=== PATIENT | male | born 1985 | race Asian ===

== ENCOUNTER 2019-01-05 16:25 | Inpatient (IN) | payer OTHER ==
[~2019-01-05] VITALS: Ht 175.3 cm; Wt 80.7 kg
[2019-01-05] MEDS ORDERED: SODIUM CHLORIDE 0.9% 1000ML 1,000 ML IV STA (16:41)
[2019-01-05] MEDS ORDERED: SODIUM CHLORIDE 0.9% 50ML 50 ML ONE (17:01)
[2019-01-05] MEDS ORDERED: IOPAMIDOL 370 MG/ML 200 ML INFUS..BTL INJ ONE (17:01)
--- NOTE | 2019-01-05 17:38 | Diagnostic Imaging Report ---
EXAMINATION: CT of the abdomen and pelvis with contrast. TECHNIQUE: Spiral CT images of the abdomen and pelvis were performed from the lung bases to the lesser trochanters after the intravenous administration of 100 cc of Isovue 370. Coronal and sagittal reformatted images were obtained. COMPARISON: None. CLINICAL HISTORY:Bilateral lower quadrant pain for 12 days DISCUSSION: ABDOMEN/PELVIS: LOWER THORAX:Unremarkable. HEPATOBILIARY: No focal hepatic lesions. No intra or extrahepatic biliary ductal dilation. GALLBLADDER: No radio-opaque stones or sludge. No wall thickening. SPLEEN: No splenomegaly. PANCREAS: No focal masses or ductal dilatation. ADRENALS: No adrenal nodules. KIDNEYS/URETERS: No hydronephrosis, stones, or solid mass lesions. PELVIC ORGANS/BLADDER: The bladder is normal. PERITONEUM/RETROPERITONEUM: Reactive Fluid in the pelvis. No free air. LYMPH NODES: No intra-abdominal, retroperitoneal, pelvic or inguinal lymphadenopathy. VESSELS: The celiac trunk,superior and inferior mesenteric and bilateral renal arteries are patent The portal, superior mesenteric and splenic veins are patent. GI TRACT: Enlarged appendix with 2 relatively hypoattenuating areas which may represent early abscess formation measuring up to 13 mm across. The appendix itself measures up to 2.2 cm in diameter with extensive wall thickening and inflammatory stranding.. BONES AND SOFT TISSUE: No bony destructive lesions. No soft tissue abnormalities. IMPRESSION: Acute appendicitis without drainable fluid collection or perforation. Relative hypoattenuating areas within the phlegmonous appendix may represent developing fluid collections, however these measure only 13 mm. Signed by: David Cavanaugh MD on 01/05/2019 5:35 PM
[2019-01-05] MEDS ORDERED: PROMETHAZINE 25MG/ NS 50ML (IV) IV PRN (18:00)
[2019-01-05] MEDS ORDERED: MORPHINE SULFATE INJ 4 MG/ML INJ 1ML IV PRN (18:00)
[2019-01-05] MEDS ORDERED: DIPHENHYDRAMINE HCL INJ 50 MG/ML VIAL IV PRN (18:00)
[2019-01-05] MEDS: SODIUM CHLORIDE 0.9% 1000ML 1,000 ML IV SCH ×2 (18:09→19:40)
[2019-01-05] MEDS: PIPER-TAZ 3.375 GM / NS 50ML IV SCH (18:09)
--- OUTSIDE RECORDS SUMMARY | 2019-01-05 18:09 | XMS REPORT ---
Author Author [facility] Address Unknown Phone Unavailable Care Team Providers Care Chlorinator Operator Name Role Phone Aroldo FONG Unavailable Unavailable Problems This patient has no known problems. Allergies, Adverse Reactions, Alerts This patient has no known allergies or adverse reactions. Medications This patient has no known medications. Results Test Description Test Time Test Comments Text Results Atomic Results Result Comments CT ABD/PEL WITH CONTRAST-HOPD 2019-01-05 17:32:00 [place] [address] Patient Name: SILVERIO VILLAGOMEZ MR #: [id number] : 1985 Age/Sex: 33/M Req #: [id number] Adm Physician: Ordered by: MIMI FONG MD Report #: [id number] Location: FS Room/Bed: Procedure: [id number] HOPD/CT ABD/PEL WITH CONTRAST-HOPD Exam Date: Exam Time: REPORT STATUS: Signed EXAMINATION: CT of the abdomen and pelvis with contrast. TECHNIQUE: Spiral CT images of the abdomen and pelvis were performed from the lung bases to the lesser trochanters after the intravenous administration of 100 cc of Isovue 370. Coronal and sagittal reformatted images were obtained. COMPARISON: None. CLINICAL HISTORY:Bilateral lower quadrant pain for 12 days DISCUSSION: ABDOMEN/PELVIS: LOWER THORAX:Unremarkable. HEPATOBILIARY: No focal hepatic lesions. No intra or extrahepatic biliary ductal dilation. GALLBLADDER: No radio- opaque stones or sludge. No wall thickening. SPLEEN: No splenomegaly. PANCREAS: No focal masses or ductal dilatation. ADRENALS: No adrenal nodules. KIDNEYS/URETERS: No hydronephrosis, stones, or solid mass lesions. PELVIC ORGANS/BLADDER: The bladder is normal. PERITONEUM/RETROPERITONEUM: Reactive Fluid in the pelvis. No free air. LYMPH NODES: No intra-abdominal, retroperitoneal, pelvic or inguinal lymphadenopathy. VESSELS: The celiac trunk,superior and inferior mesenteric and bilateral renal arteries are patent The portal, superior mesenteric and splenic veins are patent. GI TRACT: Enlarged appendix with 2 relatively hypoattenuating areas which may represent early abscess formation measuring up to 13 mm across. The appendix itself measures up to 2.2 cm in diameter with extensive wall thickening and inflammatory stranding.. BONES AND SOFT TISSUE: No bony destructive lesions. No soft tissue abnormalities. IMPRESSION: Acute appendicitis without drainable fluid collection or perforation. Relative hypoattenuating areas within the phlegmonous appendix may represent developing fluid collections, however these measure only 13 mm. Signed by: David Becerril MD on 01/05/2019 5:35 PM Dictated By: JUMA BECERRIL MD [id number] Transcribed By: CALEB on 01/05/19 173 COPY TO: MIMI FONG MD
[2019-01-05] MEDS ORDERED: PIPER-TAZ 3.375 GM 50 ML ONE (18:11)
[2019-01-05] MEDS ORDERED: PROMETHAZINE 25MG/SOD CHL 0.9% 50 ML IV PRN (18:15)
--- NOTE | 2019-01-05 18:25 | NUR ---
[facility] CALLED FOR TRANSPORT ETA 45 MINUTES
[2019-01-05 18:57] VITALS: BP 118/71
[2019-01-05 19:00] VITALS: BP 118/71
--- NOTE | 2019-01-05 19:00 | NUR ---
patient is a new admit that arrived via stretcher. patient is awake and talking. patient is complaining of discomfort in the abdomen but denies nausea. patient has been assisted into the bed. bed is in the lowest position and call guillaume is within reach. will continue to monitor patient's care.
--- NOTE | 2019-01-05 19:30 | NUR ---
PATIENTS STATES HE IS VERY HUNGRY. SURGEON NOTIFIED. RECEIVED ORDER FROM SURGEON TO DC NPO STATUS UNTIL MIDNIGHT. PATIENT IS NOW ON A REGULAR DIET UNTIL MIDNIGHT. WILL CONTINUE TO MONITOR PATIENT'S CARE.
[2019-01-05 23:55] VITALS: BP 111/57
[2019-01-06] VITALS (7 sets, daily range): BP systolic 103–131; BP diastolic 58–78
[2019-01-06] MEDS: PIPER-TAZ 3.375 GM / NS 50ML IV SCH ×3 (01:43→17:05)
[2019-01-06 05:28] LABS: BASOPHILS % 0.4 % (0.0-1.0); EOSINOPHILS # (AUTO) 0.3 (0.0-0.4); EOSINOPHILS % 3.2 % (0.0-6.0); HEMATOCRIT 44.2 % (38.2-49.6); HEMOGLOBIN 14.9 g/dL (14.0-18.0); LYMPHOCYTES # (AUTO) 1.6 (1.0-3.2); LYMPHOCYTES % 15.2 % (18.0-39.1); MEAN CORPUSCULAR HEMOGLOBIN 29.3 pg (28-32); MEAN CORPUSCULAR HGB CONC 33.7 g/dL (31-35); MONOCYTES # (AUTO) 0.8 (0.2-0.8); MONOCYTES % 7.5 % (4.4-11.3); NEUTROPHILS # (AUTO) 7.7 (2.1-6.9); NEUTROPHILS % 73.1 % (38.7-80.0); PLATELET COUNT 280 x10e3/uL (140-360); RED BLOOD COUNT 5.08 x10e6/uL (4.3-5.7); RED CELL DISTRIBUTION WIDTH 12.5 % (11.7-14.4)
[2019-01-06 05:41] LABS: ANION GAP 9.9 mmol/L (8-16); BLOOD UREA NITROGEN 9 mg/dL (7-26); BUN/CREATININE RATIO 8 (6-25); CALCIUM 9.3 mg/dL (8.4-10.2); CARBON DIOXIDE 27 mmol/L (22-29); CHLORIDE 106 mmol/L (98-107); CREATININE, SERUM 1.07 mg/dL (0.72-1.25); EST GLOMERULAR FILTRATION RATE > 60 ML/MIN (60-); GLUCOSE 88 mg/dL (74-118); POTASSIUM 3.9 mmol/L (3.5-5.1); SODIUM 139 mmol/L (136-145)
--- NOTE | 2019-01-06 07:03 | NUR ---
PT ALERT RESP EVEN AND UNLABORED NO C/O PAIN WHEN ASKED PT ABLE TO MAKE NEEDS KNOWN, CALL LIGHT IN REACH.
--- NOTE | 2019-01-06 07:20 | NUR ---
REPORT GIVEN TO DAY NURSE. PATIENT IS RESTING IN BED. BED IS IN LOWEST POSITION AND CALL WOLFE IS WITH REACH.
--- NOTE | 2019-01-06 07:27 | Consultation ---
DATE OF CONSULTATION: 01/06/2019 REFERRING PHYSICIAN: Dr. Lalo Law. HISTORY OF PRESENT ILLNESS: The patient is a 33-year-old male, who presents with complaints of abdominal pain, which has started 12 days ago. He denies nausea, vomiting, or fever. The pain has persisted. He came in to the emergency room, where evaluation with CT of the abdomen and pelvis revealed findings of acute appendicitis. The patient is not having any nausea or vomiting. PAST MEDICAL HISTORY: He denies any chronic medical problems. ALLERGIES: HE HAS NO KNOWN ALLERGIES. MEDICATIONS: There were no current medications. PAST SURGICAL HISTORY: No previous surgeries. FAMILY HISTORY: Noncontributory. 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 Does not smoke cigarettes or drinks alcohol. REVIEW OF SYSTEMS: As stated above, otherwise was negative. PHYSICAL EXAMINATION: GENERAL: The patient is awake, alert, in no distress. VITAL SIGNS: Normal. HEENT: Unremarkable. Sclerae nonicteric. NECK: Supple. No masses. LUNGS: Equal breath sounds and clear bilaterally. CARDIAC: Regular rate and rhythm with no murmur. ABDOMEN: The abdomen is tender in the right lower quadrant. There is no distention. There is no mass. No questionable signs of peritonitis. EXTREMITIES: Have no edema. Pulses are palpable. NEUROLOGIC: Intact. LABORATORY TESTS: The white blood cell count 10.5, hemoglobin and hematocrit are normal. Chemistries are normal. ASSESSMENT: A 33-year-old male with acute appendicitis. He will benefit from appendectomy, we will try to schedule for today. He has been started on IV antibiotics. Procedure was explained to the patient, including risks, benefits, and alternatives. He understands, he has had the opportunity to ask questions. Thank you for asking me to see Mr. Spain. MD LAKE Andrew/JACKELIN /[id number]
[2019-01-06] MEDS: FAMOTIDINE 20 MG/2 ML VIAL IV SCH ×2 (08:14→17:05)
[2019-01-06] MEDS: SODIUM CHLORIDE 0.9% 1000ML 1,000 ML IV SCH ×2 (09:51→14:00)
[2019-01-06] MEDS ORDERED: BUPIVACAINE HCL 0.5% INJ 30 ML VIAL INJ ONE (10:45)
--- NOTE | 2019-01-06 12:07 | NUR ---
pt off unit for procedure.
[2019-01-06] MEDS ORDERED: ACETAMINOPHEN 1000 MG/100 ML 100 ML IV ONE (12:52)
[2019-01-06] MEDS ORDERED: ONDANSETRON HCL INJ 2MG/ML 2ML 2 MG/ML VIAL IV PRN (14:00)
[2019-01-06] MEDS ORDERED: FENTANYL CITRATE/PF 100MCG/2 ML INJ ONE ×2 (14:14→19:44)
--- NOTE | 2019-01-06 14:35 | NUR ---
Visit made by the Spiritual Care Department Pastoral Visitor, Marilyn Lyons. Pt out of room and no family at bedside. A card was left at the bedside to indicate a missed visit from a member of the Spiritual Care team and to inform the pt and family of the availability of a Duct Layer Helper 24 hours a day/7 days a week. A senior hr business partner will follow up as able. KIERA HERNANDEZ Duct Layer Helper Spiritual Care Department O: [phone] Pager: [phone] ([phone] number calling from)
--- NOTE | 2019-01-06 14:50 | NUR ---
PT RETURNED TO ROOM, RESP EVEN AND UNLABORED AT THIS TIME NO DISTRESS NOTED, PT ALERT RESP EVEN AND UNLABORED. CALL LIGHT IN REACH WILL CONT TO MONITOR.
[2019-01-06] MEDS: ONDANSETRON HCL INJ 2MG/ML 2ML 2 MG/ML VIAL IV PRN ×2 (15:22→19:24)
[2019-01-06] MEDS: HYDROMORPHONE 2MG/ML 2 MG/ML ML IV PRN ×2 (15:22→19:24)
--- NOTE | 2019-01-06 16:04 | Operative Report ---
DATE OF PROCEDURE: 01/06/2019 SURGEON: Terrance Connolly MD PREOPERATIVE DIAGNOSIS: Acute appendicitis. POSTOPERATIVE DIAGNOSES: Acute appendicitis with periappendiceal abscess. PROCEDURES: Diagnostic laparoscopy, laparoscopic appendectomy with drainage of periappendiceal abscess. X RAY ELECTRONICS WIREMAN: None. ANESTHESIA: General. INDICATIONS AND FINDINGS: The patient is a 33-year-old male, who presents with complaints of abdominal pain for 12 days. Workup revealed acute appendicitis. At surgery, the patient had acutely inflamed retrocecal appendix with abscess surrounded and large amount of the appendix was destroyed by the abscess. Base of the appendix was identified and there was large amount of inflammatory tissue with appendix running adherent to the wall of the colon. TECHNIQUE: After adequate general endotracheal anesthesia with the patient in supine position, the abdomen was prepped and draped in a sterile fashion with ChloraPrep solution. Skin in the umbilicus was infiltrated with 0.5% Marcaine, incision was made in the umbilicus, abdominal wall was elevated and Veress needle was introduced, pneumoperitoneum was then created. A 10 mm trocar and cannula was then passed through the umbilical wound. Laparoscopic camera was introduced. Initial laparoscopy revealed inflammatory process involving the cecum and right colon. A 12 mm trocar and cannula were placed suprapubically and a 5 mm trocar and cannula were placed in the right upper quadrant. Adherent cecum was freed from the abdominal wall. As it was freed, there was purulent fluid. The cecum was mobilized. There was dense inflammatory reaction around the lateral aspect of the cecum and the right colon. Purulent fluid was drained. There was an abscess that was identified and this was drained. As the cecum was mobilized, the base of the appendix was identified, this was dissected free and the base of the appendix was divided close to the cecum with Endo-GAURI stapler. The appendix was then followed along the cecum and right colon, vessels were divided with LigaSure device and some areas were densely adherent to the colon, as it was elevated colon came with it and in order to facilitate removal of the appendix, Endo-GAURI stapler was placed across the area where the appendix was adherent to the colon and so the portion of the wall of the colon was taken with the appendix where it could not be . Remaining portion of the mesoappendix was divided with LigaSure device freeing the appendix completely. The appendix was then placed in an Endopouch and brought out through the suprapubic cannula, care was taken to not touch the abdominal wall. The area of appendectomy was inspected for hemostasis which was seen to be adequate. It was irrigated with saline. All fluid aspirated, inspected for hemostasis which was seen to be adequate. Instruments and cannulas were then removed. Pneumoperitoneum was evacuated. Wounds were then closed. Fascia in the larger trocar wound was closed with 0 Vicryl. Skin to all wounds closed with caron. Sterile dressings applied to each wound. The patient tolerated the procedure well. Estimated blood loss was 30 mL, there were no complications, all counts were correct, and the patient was taken to recovery room in satisfactory condition. MD LAKE Andrew/JACKELIN /[id number]
[2019-01-06] MEDS ORDERED: NEOSTIGMINE 5 MG/5ML SYR ONE (17:35)
[2019-01-06] MEDS ORDERED: ROCURONIUM BROMIDE 10 MG/ML 5ML VIAL ONE (17:35)
[2019-01-06] MEDS ORDERED: ONDANSETRON HCL INJ 2MG/ML 2ML 2 MG/ML VIAL ONE (17:35)
[2019-01-06] MEDS ORDERED: SEVOFLURANE INHAL SOLN 250 ML PEN BTL ONE (17:35)
[2019-01-06] MEDS ORDERED: DEXAMETHASONE SOD PHOS INJ 4 MG/ML VIAL ONE (17:35)
[2019-01-06] MEDS ORDERED: ACETAMINOPHEN 1000 MG/100 ML IV ONE (17:35)
[2019-01-06] MEDS ORDERED: LIDOCAINE HCL 2% LOCAL INJ 5 ML SDV VIAL INJ ONE (17:35)
[2019-01-06] MEDS ORDERED: PROPOFOL IV EMULSION 10 MG/ML 20 ML VIAL ONE (17:35)
[2019-01-06] MEDS ORDERED: GLYCOPYRROLATE INJ 1MG/ 5 ML SYR ONE (17:35)
--- NOTE | 2019-01-06 19:15 | NUR ---
Rounding done and report received. Patient is resting in bed. A&Ox4, respirations even & unlabored, no distress noted. IV fluids running, R AC patent and no infiltration noted. Patient is c/o abdominal pain, will medicate per order. Patient is NPO, advised patient to ambulate to help alleviate gas pains and increase bowel movements, patient voiced understanding. Call light within reach, side rails x2 raised and bed set to lowest position.
--- NOTE | 2019-01-06 19:20 | NUR ---
report given to oncoming nurse for continued care
[2019-01-06] MEDS ORDERED: MIDAZOLAM HCL 2 MG/2 ML VIAL ONE (19:44)
[2019-01-07] VITALS (7 sets, daily range): BP systolic 102–126; BP diastolic 59–75
[2019-01-07] MEDS: SODIUM CHLORIDE 0.9% 1000ML 1,000 ML IV SCH ×3 (01:19→22:30)
[2019-01-07] MEDS: PIPER-TAZ 3.375 GM / NS 50ML IV SCH ×3 (02:09→16:52)
[2019-01-07] MEDS: HYDROMORPHONE 2MG/ML 2 MG/ML ML IV PRN ×4 (03:48→16:13)
[2019-01-07 05:29] LABS: BASOPHILS % 0.1 % (0.0-1.0); EOSINOPHILS % 0.2 % (0.0-6.0); HEMATOCRIT 43.6 % (38.2-49.6); LYMPHOCYTES # (AUTO) 1.4 (1.0-3.2); LYMPHOCYTES % 8.8 % (18.0-39.1); MEAN CORPUSCULAR HEMOGLOBIN 29.2 pg (28-32); MEAN CORPUSCULAR HGB CONC 34.4 g/dL (31-35); MEAN CORPUSCULAR VOLUME 84.8 fL (81-99); MONOCYTES # (AUTO) 1.3 (0.2-0.8); MONOCYTES % 8.5 % (4.4-11.3); NEUTROPHILS # (AUTO) 12.9 (2.1-6.9); PLATELET COUNT 306 x10e3/uL (140-360); RED BLOOD COUNT 5.14 x10e6/uL (4.3-5.7); RED CELL DISTRIBUTION WIDTH 12.5 % (11.7-14.4)
[2019-01-07 05:39] LABS: ANION GAP 12.8 mmol/L (8-16); BLOOD UREA NITROGEN 8 mg/dL (7-26); BUN/CREATININE RATIO 7 (6-25); CALCIUM 9.4 mg/dL (8.4-10.2); CARBON DIOXIDE 25 mmol/L (22-29); CHLORIDE 100 mmol/L (98-107); CREATININE, SERUM 1.21 mg/dL (0.72-1.25); EST GLOMERULAR FILTRATION RATE > 60 ML/MIN (60-); GLUCOSE 102 mg/dL (74-118); POTASSIUM 3.8 mmol/L (3.5-5.1); SODIUM 134 mmol/L (136-145)
--- NOTE | 2019-01-07 06:45 | NUR ---
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 Found to have acute appendicitis; Sx consulted. PMH: former smoker PSHx: none Allergies; see emr Fh/SH; remote cigs meds; see emr ROS: no f/c/s/N/V/D/CASILLAS/vision changes/cp/sob v/s; revd PE tired appearing anicteric ns1s2 mod bs soft nd; right lower abdomen tender; no e/t a&ox3; trammell skin dry n. affect labs/meds revd A/P: 33yoM Acute appendicitis Overweight state BMI 26.3 Former smoker PLAN sx pending; treat pain symptomatically DVT prophylaxis Xavier Law MD, PhD. DOS: 01/06/19 at 7am
--- NOTE | 2019-01-07 06:46 | NUR ---
IM- progress note O/N: s/p surgery ROS: no f/c/s/N/V/D/CASILLAS/vision changes/cp/sob v/s; revd PE tired appearing anicteric ns1s2 mod bs soft nd; right lower abdomen tender; no e/t a&ox3; trammell skin dry n. affect labs/meds revd A/P: 33yoM Acute appendicitis with Periappendiceal Abscess Overweight state BMI 26.3 Former smoker PLAN sx pending; treat pain symptomatically DVT prophylaxis 01/07 s/p lap vera for acute appendicitis; foudn to have Periappendiceal Abscess also. Pain is 6/10. Ambulate; diet per sx. Xavier Law MD, PhD. DOS: 01/06/19 at 7am
--- NOTE | 2019-01-07 07:30 | NUR ---
RECEIVED PATIENT AWAKE IN BED NO SIGNS OF DISTRESS. BED LOW, WHEELS LOCKED, SIDE RAILS X2. CALL LIGHT IN REACH WILL CONTINUE TO MONITOR.
[2019-01-07] MEDS: FAMOTIDINE 20 MG/2 ML VIAL IV SCH ×2 (08:05→16:52)
[2019-01-07] MEDS: ONDANSETRON HCL INJ 2MG/ML 2ML 2 MG/ML VIAL IV PRN (08:20)
--- NOTE | 2019-01-07 10:00 | NUR ---
PATIENT A/O X3, EVEN RESPIRATIONS ON RA. BOWEL SOUNDS ACTIVE, NO BM OR GAS SINCE SURGERY. ENCOURAGED PATIENT TO AMBULATE. RIGHT AC 20 GAUGE IV WITH NS @ 100 CC/HR. TROCAR SITES CLEAN, DRY, AND INTACT ON ABDOMEN. BED LOW, WHEELS LOCKED, SIDE RAILS X2. CALL LIGHT IN REACH WILL CONTINUE TO MONITOR PATIENT.
--- NOTE | 2019-01-07 16:18 | NUR ---
PAGED DR. SIMPSON REGARDING TEMPERATURE 101.2 AND NO GAS/BM. NEW ORDERS FOR TYLENOL Q6 PRN AND STOOL SOFTENERS.
[2019-01-07] MEDS ORDERED: ACETAMINOPHEN 325 MG TAB PO PRN (16:30)
[2019-01-07] MEDS: SENNA-S TABLET PO SCH (16:52)
[2019-01-07] MEDS: DOCUSATE SODIUM 100 MG CAP PO SCH (16:52)
[2019-01-08] VITALS (8 sets, daily range): BP systolic 107–118; BP diastolic 57–97
[2019-01-08] MEDS: PIPER-TAZ 3.375 GM / NS 50ML IV SCH ×3 (01:38→16:51)
[2019-01-08 05:31] LABS: HEMATOCRIT 40.6 % (38.2-49.6); HEMOGLOBIN 13.6 g/dL (14.0-18.0); MEAN CORPUSCULAR HEMOGLOBIN 28.6 pg (28-32); MEAN CORPUSCULAR HGB CONC 33.5 g/dL (31-35); MEAN CORPUSCULAR VOLUME 85.5 fL (81-99); PLATELET COUNT 267 x10e3/uL (140-360); RED BLOOD COUNT 4.75 x10e6/uL (4.3-5.7); RED CELL DISTRIBUTION WIDTH 12.7 % (11.7-14.4)
[2019-01-08] MEDS: SODIUM CHLORIDE 0.9% 1000ML 1,000 ML IV SCH ×3 (06:00→20:52)
[2019-01-08] MEDS: HYDROMORPHONE 2MG/ML 2 MG/ML ML IV PRN ×4 (06:39→22:38)
[2019-01-08] MEDS ORDERED: LEVAQUIN500 MG PO (07:14)
[2019-01-08] MEDS ORDERED: COLACE100 MG PO (07:14)
[2019-01-08] MEDS ORDERED: SENNA S TABLET1 EACH PO (07:14)
[2019-01-08] MEDS ORDERED: TYLENOL WITH C1 EACH PO (07:14)
--- NOTE | 2019-01-08 07:45 | NUR ---
RECEIVED PATIENT AWAKE RESTING IN BED NO SIGNS OF DISTRESS. BED LOW, WHEELS LOCKED, SIDE RAILS X2. CALL LIGHT IN REACH WILL CONTINUE TO MONITOR PATIENT.
--- NOTE | 2019-01-08 08:57 | NUR ---
ELKIN SPOKE TO DR. SIMPSON REGARDING PATIENT STATUS AND PLAN OF CARE. PATIENT UNABLE TO PRODUCE GAS AND BM POST OP LAP APPY WITH DRAINAGE OF ABSCESS. PATIENT QUALIFIES FOR INPT STATUS. MD STATES PATIENT TO HAVE BM AOR PRODUCE GAS FOR DISCHARGE SO DO NOT MAKE PATIENT INPT AT THIS TIME. Addendum: 01/08/19 at 0900 by Letha Mcfarlane CM LATE ENTRY: 12/08 @0675
--- NOTE | 2019-01-08 09:00 | NUR ---
ELKIN SPOKE TO DR. SIMPSON REGARDING INPT ORDER THIS MORNING. PATIENT STILL UNABLE TO PRODUCE BM AND GAS. MD PLACED INPT ORDER DUE TO POST OP COMPLICATIONS.
--- NOTE | 2019-01-08 09:00 | NUR ---
PATIENT A/O X3, EVEN RESPIRATIONS ON RA. BOWEL SOUNDS ACTIVE, SKIN INTACT, NO EDEMA. PATIENT HAS HAD BM. TROCAR SITES CLEAN DRY AND INTACT. NS @ 100 CC/HR AND IV ABX. ENCOURAGED PATIENT TO AMBULATE AND USE I.S. CALL LIGHT IN REACH. VITAL SIGNS STABLE. WILL CONTINUE TO MONITOR PATIENT.
[2019-01-08] MEDS: FAMOTIDINE 20 MG/2 ML VIAL IV SCH ×2 (09:02→16:51)
[2019-01-08] MEDS: DOCUSATE SODIUM 100 MG CAP PO SCH ×2 (09:02→16:51)
[2019-01-08] MEDS: SENNA-S TABLET PO SCH ×2 (09:02→16:51)
[2019-01-09] VITALS (8 sets, daily range): BP systolic 114–126; BP diastolic 57–84
[2019-01-09] MEDS: HYDROMORPHONE 2MG/ML 2 MG/ML ML IV PRN ×2 (01:44→11:55)
[2019-01-09] MEDS: PIPER-TAZ 3.375 GM / NS 50ML IV SCH ×3 (01:59→17:45)
[2019-01-09 06:17] LABS: HEMATOCRIT 42.6 % (38.2-49.6); HEMOGLOBIN 14.2 g/dL (14.0-18.0); MEAN CORPUSCULAR HEMOGLOBIN 28.8 pg (28-32); MEAN CORPUSCULAR HGB CONC 33.3 g/dL (31-35); MEAN CORPUSCULAR VOLUME 86.4 fL (81-99); PLATELET COUNT 296 x10e3/uL (140-360); RED BLOOD COUNT 4.93 x10e6/uL (4.3-5.7); RED CELL DISTRIBUTION WIDTH 12.9 % (11.7-14.4)
--- NOTE | 2019-01-09 06:50 | NUR ---
Discharge summary Principal Dx Acute appendicitis with periappendiceal abscess Abdominal pain Secondary dx; Overweight state BMI 26.3 Former smoker PLAN sx pending; treat pain symptomatically DVT prophylaxis 01/07 s/p lap vera for acute appendicitis; foudn to have Periappendiceal Abscess also. Pain is 6/10. Ambulate; diet per sx. 01/08 cont pain meds; had BM d/c home f/u pcp 1 week stable d/c>35mins Xavier Law MD, PhD.
--- NOTE | 2019-01-09 07:30 | NUR ---
PT RECD EARLIER ON BEDSIDE ROUNDS. PAIN 6/10 MEDICATED WITH NORCO ORDERED. SITES TIMES 3 TO ABD. NO SIGNS OF INFECTION.
[2019-01-09] MEDS: HYDROCODONE/APAP 5MG-325MG TAB PO PRN ×4 (07:35→19:48)
[2019-01-09] MEDS: SODIUM CHLORIDE 0.9% 1000ML 1,000 ML IV SCH ×2 (07:40→20:27)
--- NOTE | 2019-01-09 08:00 | NUR ---
PAIN BETTER AT THIS TIME. PT EATING BREAKFAST.
[2019-01-09] MEDS: FAMOTIDINE 20 MG/2 ML VIAL IV SCH ×2 (09:00→15:45)
[2019-01-09] MEDS: DOCUSATE SODIUM 100 MG CAP PO SCH ×2 (09:00→17:45)
[2019-01-09] MEDS: SENNA-S TABLET PO SCH ×2 (09:00→17:45)
--- NOTE | 2019-01-09 11:55 | NUR ---
PT C/O PAIN MEDICATED ORDERED.
[2019-01-09] MEDS ORDERED: ONDANSETRON HCL 4 MG ORAL DISINTEGRATING TAB PO PRN (12:15)
[2019-01-09 12:38] LABS: EOSINOPHILS % (MANUAL) 5 % (0-7); LYMPHOCYTES % (MANUAL) 18 % (19-48); METAMYELOCYTES % (MANUAL) 3 % (0-0); MONOCYTES % (MANUAL) 11 % (3.4-9.0); MYELOCYTES % (MANUAL) 1 % (0-0); NEUTROPHILS % (MANUAL) 57 % (40-74)
[2019-01-09 12:39] LABS: ANISOCYTOSIS SLIGHT; PLATELET ESTIMATE ADEQUATE; PLATELET MORPHOLOGY COMMENT FEW EDTA CLUMPING; RBC MORPHOLOGY COMMENT NORMAL
--- NOTE | 2019-01-09 17:00 | NUR ---
PT AMB IN HALLWAY FOR ABOUT 30 MIN AND TOLERATED WELL.
--- NOTE | 2019-01-09 18:55 | NUR ---
BEDSIDE REPORT GIVEN PT PAIN LEVEL AT 4/10 AT THIS TIME
--- NOTE | 2019-01-09 18:58 | NUR ---
BEDSIDE SHIFT REPORT RECEIVED. PT IS AAOX3, RR EVEN AND NON-LABORED, ON RA. NO S/SX OF DISTRESS NOTED. RECEIVED IN REPORT FROM Zahra OROURKE RN THAT MD SINCLAIR NOTIFIED OF ORDERS TO D/C AND REQUESTING THAT D/C BE HELD TILL MD SINCLAIR COULD SEE PATIENT. WAS INFORMED THAT MD SIMPSON AWARE. LEFT PT LAYING SEMI FOWLERS IN BED, BED IN LOW LOCKED POSITION, SIDE RAILS UPX2, CALL LIGHT AND PHONE WITHIN REACH.
[2019-01-10] VITALS: BP 113/66
[2019-01-10] MEDS: HYDROMORPHONE 2MG/ML 2 MG/ML ML IV PRN (01:46)
[2019-01-10] MEDS: PIPER-TAZ 3.375 GM / NS 50ML IV SCH ×2 (01:46→09:09)
[2019-01-10 04:00] VITALS: BP 112/74
[2019-01-10] MEDS: SODIUM CHLORIDE 0.9% 1000ML 1,000 ML IV SCH (04:05)
[2019-01-10] MEDS: HYDROCODONE/APAP 5MG-325MG TAB PO PRN ×2 (05:23→10:45)
[2019-01-10 07:49] VITALS: BP 130/75
[2019-01-10 08:30] VITALS: BP 130/75
[2019-01-10] MEDS: FAMOTIDINE 20 MG/2 ML VIAL IV SCH (09:09)
[2019-01-10] MEDS: DOCUSATE SODIUM 100 MG CAP PO SCH (09:09)
[2019-01-10] MEDS: SENNA-S TABLET PO SCH (09:09)
--- NOTE | 2019-01-10 10:23 | NUR ---
D/C INSTRUCTIONS GIVEN. PT ALREADY HAS PRESCRIPTIONS. PT VERBALIZED UNDERSTANDING. IV D/C AND PRESSURE DRESSING APPLIED. PT REQUESTING TO SHOWER BEFORE GOING HOME. PROVIDED WITH TOWELS AND BODY WASH. PT IN SHOWER NOW. NOTIFIED BETO OF DISCHARGE ORDER ([phone]) STATES [facility] HOME WILL ARRIVE AT 1100.
--- NOTE | 2019-01-10 10:45 | NUR ---
PT DONE WITH SHOWER. NEW BANDAIDS APPLIED TO TROCAR SITES X3. ERASMO INTACT NOTED TO EACH SITE. INSTRUCTED TO F/U WITH MD IN 1 WEEK BACK HOME IN THE [facility] FOR STAPLE REMOVAL. PT VERBALIZED UNDERSTANDING.
== END 2019-01-10 11:45 | disposition home or self-care (01) | DRG 340 ==
LOC: FSED 16:25 → ERHOLD 17:54 → MED/SURG 18:57 → OBSVTOIN 01-08 07:58
PROVIDERS: ADMIT Internal Medicine; ATTEND Internal Medicine
PROC: 0W9G4ZZ Drainage of Peritoneal Cavity, Percutaneous Endoscopic Approach (ICD-10-PCS; 2019-01-06)
PROC: 0DTJ4ZZ Resection of Appendix, Percutaneous Endoscopic Approach (ICD-10-PCS; principal; 2019-01-06 12:35)
DX: K35.33 Acute appendicitis with perforation, localized peritonitis, and gangrene, with abscess (principal); F17.200 Nicotine dependence, unspecified, uncomplicated
CPT/HCPCS: 36415; 74177; 80048; 80053; 81003; 85007; 85025; 85027; 88304; 99284; G0378; J1100; J1200; J2001; J2250; J2270; J2405; J2543; J2550; J7030; Q9967